=== PATIENT | male | born 1980 | race Caucasian/White ===

== ENCOUNTER 2022-06-21 18:10 | Outpatient (CLI) | payer BC, SELFPAY ==
[2022-06-21 21:41] LABS: Cholesterol* 179 mg/dL (90-199); Glucose* 92 mg/dL (60-115); Triglycerides* 168 mg/dL (40-149)
[2022-06-21 21:42] LABS: HDL Cholesterol* 33 mg/dL (>=40); LDL Cholesterol Calculated 112 mg/dL (<100)
== END 2022-06-21 18:11 | disposition home or self-care (01) ==
PROVIDERS: PCP Nurse Practitioner Family; Visit Provider Nurse Practitioner Family
DX: Z00.00 Encounter for general adult medical examination without abnormal findings (principal); Z13.1 Encounter for screening for diabetes mellitus; Z13.6 Encounter for screening for cardiovascular disorders
CPT/HCPCS: 36415; 80061; 82947

== ENCOUNTER 2022-07-01 09:03 | Outpatient (CLI) | payer BC, SELFPAY | END 2022-07-01 09:04 | disposition home or self-care (01) | LOC: OP CLINIC 09:04 | PROVIDERS: PCP Nurse Practitioner Family; Visit Provider Internal Medicine | DX: K92.1 Melena (principal); K62.5 Hemorrhage of anus and rectum; K57.30 Diverticulosis of large intestine without perforation or abscess without bleeding; K62.89 Other specified diseases of anus and rectum | CPT/HCPCS: 45380; 88305; J2250; J3010 ==

== ENCOUNTER 2023-06-13 15:49 | Outpatient (CLI) | payer BC, SELFPAY ==
[2023-06-13 22:42] LABS: Strep A DNA Probe* NOT DETECTED (Not Detectd)
== END 2023-06-13 15:50 | disposition home or self-care (01) ==
PROVIDERS: PCP Nurse Practitioner Family; Visit Provider Nurse Practitioner Family
DX: J02.9 Acute pharyngitis, unspecified (principal); Z13.6 Encounter for screening for cardiovascular disorders
CPT/HCPCS: 80061; 87651

== ENCOUNTER 2024-06-24 08:26 | Outpatient (CLI) | payer BC, SELFPAY | END 2024-06-24 08:27 | disposition home or self-care (01) | PROVIDERS: PCP Nurse Practitioner Family; Visit Provider Nurse Practitioner Family | DX: Z00.00 Encounter for general adult medical examination without abnormal findings (principal); Z13.1 Encounter for screening for diabetes mellitus; Z13.6 Encounter for screening for cardiovascular disorders | CPT/HCPCS: 80061; 82947 ==

== ENCOUNTER 2024-07-15 22:40 | Outpatient (REF) | payer BC, SELFPAY ==
[2024-07-15 23:56] LABS: Alanine Aminotransferase* 32 U/L (4-50); Aspartate Amino Transferase* 26 U/L (12-35)
== END 2024-07-15 22:41 | disposition home or self-care (01) ==
LOC: NPINS 22:40
PROVIDERS: PCP Nurse Practitioner Family; Visit Provider Neuromusculoskeletal Medicine & OMM
DX: M13.0 Polyarthritis, unspecified (principal); T64.81XA Toxic effect of other mycotoxin food contaminants, accidental (unintentional), initial encounter
CPT/HCPCS: 84450; 84460

== ENCOUNTER 2025-04-15 08:25 | Outpatient (CLI) | payer BC, SELFPAY | END 2025-04-15 08:26 | disposition home or self-care (01) | PROVIDERS: PCP Nurse Practitioner Family; Visit Provider Nurse Practitioner Family | DX: Z00.00 Encounter for general adult medical examination without abnormal findings (principal); E66.812 Obesity, class 2; Z13.0 Encounter for screening for diseases of the blood and blood-forming organs and certain disorders involving the immune mechanism | CPT/HCPCS: 80053; 80061; 85025 ==

== ENCOUNTER 2025-05-20 09:29 | Outpatient (CLI) | payer BC, SELFPAY ==
--- NOTE | 2025-06-03 12:25 | W.PM.SLEEP ---
Sleep Study Details Details Interpreting Provider: Asad Date of Sleep Study: 05/20/25 Sleep Study Details: STUDY TYPE:? Home unattended ? BMI:? 37.29 ORDERING PROVIDER:Omari Weinstein INDICATION:? Concern for sleep apnea ? SLEEP SUMMARY:? 352 minutes monitored RESPIRATORY SUMMARY:? AHI 43.9 per rule 1A, 35.7 per CMS guideline Low oxygen 77 17.5% of study oxygen less than 90% Snoring 100% PERIODIC LIMB MOVEMENTS OF SLEEP:? Not recorded CARDIAC:? Range 45-97, mean 58.5 IMPRESSION:? Severe obstructive sleep apnea with significant hypoxemia. Bradycardia was noted during the study RECOMMENDATION: Further cardiac evaluation may be indicated For the sleep apnea AutoSet CPAP pressure 5-17 with close follow-up is recommended. Weight loss is also recommended.
== END 2025-05-20 09:30 | disposition home or self-care (01) ==
LOC: SLEEP 09:30
PROVIDERS: PCP Nurse Practitioner Family; Visit Provider Nurse Practitioner Family
DX: G47.33 Obstructive sleep apnea (adult) (pediatric) (principal)
CPT/HCPCS: 95806